=== PATIENT | female | born 2005 | race Two or more races ===

== ENCOUNTER 2024-12-14 12:01 | Observation (INO) | payer MEDICAID ==
--- NOTE | 2024-12-14 13:33 | DVH ---
EXAM: US OB ULTRASOUND COMP GTR 14 WKS HISTORY: POSS SROM TECHNIQUE: Multiple real-time grayscale images of the gravid uterus with duplex Doppler color flow an d M-mode spectral analysis. COMPARISON: None FINDINGS: IUP single live fetus at 32 weeks average ultrasound age (AUA) based on composite averages of the BPD , head circumference, abdominal circumference and femur length MEASUREMENTS: BPD: 8 cm GA: 32 w 1 d HC: 29.26 cm GA: 32 w 2 d AC: 28.9 cm GA: 32 w 6 d FL: 6 cm GA: 31 w 2 d Estimated weight 1949 grams; heart rate 150 beats per minute AQUILINO 18 cm ANATOMIC SURVEY: Posterior placenta without previa or abruption IMPRESSION: 1. IUP single live fetus at 32 weeks AUA corresponding to an REYNA of 02/07/2025. 2. No abnormality detected.
[2024-12-14 13:49] LABS: Vaginal Bacteria Moderate; Vaginal Epithelial Cells Moderate
[2024-12-14 13:51] LABS: Vaginal Clue Cells None Seen; Vaginal Trichomonas Not Present
--- NOTE | 2024-12-14 22:39 | DVHDS2 ---
Discharge Summary Date of Admission Dec 14, 2024 at 12:01 Date of Discharge: Dec 14, 2024 Admitting Diagnosis 31 wk rule out srom Labs/Diagnostic Data: Laboratory Results Test 12/14/24 12:54 Placental [id number] Negative Vaginal WBC (Wet Prep) Rare Vaginal RBC (Wet Prep) None seen Vaginal Epithelial Cells (Wet Prep) Moderate Vaginal Bacteria (Wet Prep) Moderate Vaginal Trichomonas (Wet Prep) Not present Vaginal Yeast (Wet Prep) None seen Vaginal Clue Cells (Wet Prep) None seen Brief Hx & Hospital Course: Nst reactive performed ; US reassuring Condition at Discharge: Good Final Diagnosis/Problems List 31 weeks rule out srom Discharge Disposition: Home Discharge Instruct/Medications Diet: Regular Activity: Light activity No Active Prescriptions or Reported Meds Discharge Statement: "Patient was advised to return to the ER or call 911 if any headaches, dizziness, shortness of breath, chest pain, abdominal pain, bleeding, fevers, or worsening of medical condition. Patient was counseled about treatment plan, medications, possible side effects, patientverbalized understanding. All questions were answered to the best of my ability. This discharge took greater then 30 minutes in planning, reviewing documentation, counseling the patient, and discussing with other team members." ASSESSMENT ASSESSMENT Hospital Course nst OB US Assessment 31 no sign of SROM Visit Coding OBGYN Date of Service: Dec 14, 2024 Billing Provider: PADMINI POWER DO CLOTHING CONSULTANT Common Visit Codes: [id number] INP/OBS CARE(HIGH) CLOTHING CONSULTANT Procedure Codes: 62304-33- NON-STRESS TEST PADMINI POWER DO Dec 14, 2024 22:38
== END 2024-12-14 14:15 | disposition home or self-care (01) ==
LOC: LDRP 12:01
PROVIDERS: ADMIT Obstetrics & Gynecology; ATTEND Obstetrics & Gynecology
DX: O42.913 Preterm premature rupture of membranes, unspecified as to length of time between rupture and onset of labor, third trimester (principal); Z3A.31 31 weeks gestation of pregnancy; Z79.899 Other long term (current) drug therapy
CPT/HCPCS: 59025; 76805; 81002; 84112; 87210; G0378

== ENCOUNTER 2024-12-21 06:09 | Observation (INO) | payer MEDICAID ==
[~2024-12-21] VITALS: Ht 162.6 cm; Wt 81.6 kg
[2024-12-21] MEDS ORDERED: PREN-96 PO (08:44)
--- NOTE | 2024-12-21 09:14 | DVH ---
BIOPHYSICAL PROFILE HISTORY: GDMA1 TECHNIQUE: Multiple transabdominal real-time grayscale sonographic images through the gravid uterus of the fetus with duplex Doppler color flow and M-mode spectral analysis FINDINGS: BIOPHYSICAL PROFILE: breathing score: 2 movement score: 2 tone score: 2 Quantitative AQUILINO score: 2 (AQUILINO: 16.5 Cm.) Total score: 8 The cervix not well visualized Single live fetus in cephalic presentation. heart rate 124 beats per minute. Posterior placenta without previa or abruption IMPRESSION: Biophysical profile score: 8
[2024-12-21] MEDS ORDERED: TERBUTALINE SULFATE 1 MG/ML 1ML VIAL SC SCH (09:30)
--- NOTE | 2024-12-22 14:24 | DVHDS2 ---
Physician Discharge Progress N Final Diagnosis: 32 wks ptl Operations or Procedures: Operations or Procedures nst reactive reviwed,prietoo Condition on Discharge: Good Disposition: Home Discharge Instructions: Diet: Consistent carbohydrate Activity: No Restrictions, As Tolerated Medications: na Follow Up Care: Specialist: 1w Discharge Statement: "Patient was advised to return to the ER or call 911 if any headaches, dizziness, shortness of breath, chest pain, abdominal pain, bleeding, fevers, or worsening of medical condition. Patient was counseled about treatment plan, medications, possible side effects, patientverbalized understanding. All questions were answered to the best of my ability. This discharge took greater then 30 minutes in planning, reviewing documentation, counseling the patient, and discussing with other team members." Visit Coding OBGYN Date of Service: Dec 21, 2024 Billing Provider: EIRBERTO GOFF DO SIGNAL INTEGRITY ENGINEER Common Visit Codes: [id number] OBS CARE (HIGH) SIGNAL INTEGRITY ENGINEER Procedure Codes: 60009-76- NON-STRESS TEST ERIBERTO GOFF DO Dec 22, 2024 14:24
== END 2024-12-21 10:47 | disposition home or self-care (01) ==
LOC: LDRP 08:15
PROVIDERS: ADMIT Obstetrics & Gynecology; ATTEND Obstetrics & Gynecology
DX: O60.03 Preterm labor without delivery, third trimester (principal); Z98.890 Other specified postprocedural states; Z79.899 Other long term (current) drug therapy; Z3A.32 32 weeks gestation of pregnancy
CPT/HCPCS: 59025; 76819; 81002; 82948; 82962; 94760; 96372; G0378; J3105

== ENCOUNTER 2024-12-28 06:34 | Observation (INO) | payer MEDICAID ==
[~2024-12-28 06:34] MED LIST: PREN-96 PO
[2024-12-31 16:37] LABS: Hematocrit 34.9 % (36.0-46.0); Hemoglobin 11.9 g/dL (12.2-16.2); Mean Corpuscular Hemoglobin 30.8 pg (28.0-32.0); Mean Corpuscular Volume 90.1 fL (80.0-100.0); Nucleated Red Blood Cells % 0.0 %
[2024-12-31 16:48] LABS: Protein, Urine 12.0 mg/dL (1-14)
[2024-12-31 16:51] LABS: Amphetamine Screen, Urine Neg (NEGATIVE); Barbiturate Scree,Urine Neg (NEGATIVE); Benzodiazephine Screen, Urine Neg (NEGATIVE); Cannabinoid Screen, Urine Neg (NEGATIVE); Cocaine Screen, Urine Neg (NEGATIVE); Opiate Scree,Urine Neg (NEGATIVE); Phencyclidine Screen, Urine Neg (NEGATIVE)
[2024-12-31 16:52] LABS: Urine Amorphous Crystal FEW /hpf (None Seen); Urine Protein, UAD Negative (Negative)
[2024-12-31 16:54] LABS: Alanine Aminotransferase 16 U/L (7-40); Albumin 3.9 g/dL (3.2-4.8); Anion Gap 10 (5-15); BUN/Creatinine Ratio 18.0 (10.0-20.0); Bilirubin, Total 0.3 mg/dL (0.2-1.0); Calcium 9.0 mg/dL (8.7-10.4); Carbon Dioxide 23 mmol/L (20-31); Chloride 104 mmol/L (98-107); Glucose 88 mg/dL (74-106); INR 0.95 (0.9-1.15); Partial Thromboplastin Time 25.5 SEC (24.5-34.5); Potassium 3.9 mmol/L (3.5-5.1); Prothrombin Time 10.1 sec (9.3-11.8); Sodium 137 mmol/L (136-145); Total Protein 6.1 g/dL (5.7-8.2); Uric Acid 4.2 mg/dL (3.1-7.8)
[2024-12-31 16:57] LABS: Alkaline Phosphatase 147 U/L (46-116); Blood Urea Nitrogen 9 mg/dL (9-23)
--- NOTE | 2024-12-31 17:16 | DVH ---
BIOPHYSICAL PROFILE HISTORY: PIH/Macro TECHNIQUE: Multiple real-time grayscale sonographic images through the gravid uterus of the fetus wi th duplex Doppler color flow. FINDINGS: BIOPHYSICAL PROFILE: breathing score: 2 movement score: 2 tone score: 2 Quantitative AQUILINO score: 2 Total score: 8 out of 8 Single live intrauterine . Cephalic lie. heart rate of 134 beats per minute. AQUILINO 17. 5 cm. Placenta is posteriorly positioned. IMPRESSION: Biophysical profile score: 8 out of 8
== END 2024-12-31 17:36 | disposition home or self-care (01) ==
LOC: LDRP 12-31 15:28
PROVIDERS: ADMIT Obstetrics & Gynecology; ATTEND Obstetrics & Gynecology
DX: Z36.89 Encounter for other specified antenatal screening (principal); R79.1 Abnormal coagulation profile; Z3A.33 33 weeks gestation of pregnancy; Z79.899 Other long term (current) drug therapy; Z98.890 Other specified postprocedural states
CPT/HCPCS: 36415; 59025; 76819; 80053; 80307; 81001; 81002; 82570; 84156; 84550; 85025; 85610; 85730; 94760; G0378

== ENCOUNTER 2025-01-06 07:40 | Observation (INO) | payer MEDICAID ==
--- NOTE | 2025-01-06 14:27 | DVHDS2 ---
Physician Discharge Progress N Final Diagnosis: gdm Operations or Procedures: Operations or Procedures nst reactive reviwed,sono Condition on Discharge: Good Disposition: Home Discharge Instructions: Diet: Consistent carbohydrate Activity: No Restrictions, As Tolerated Medications: na Follow Up Care: Specialist: 1d Discharge Statement: "Patient was advised to return to the ER or call 911 if any headaches, dizziness, shortness of breath, chest pain, abdominal pain, bleeding, fevers, or worsening of medical condition. Patient was counseled about treatment plan, medications, possible side effects, patientverbalized understanding. All questions were answered to the best of my ability. This discharge took greater then 30 minutes in planning, reviewing documentation, counseling the patient, and discussing with other team members." Visit Coding OBGYN Date of Service: Jan 06, 2025 Billing Provider: ERIBERTO GOFF DO EXHIBITION CARVER Common Visit Codes: [id number] OBS CARE (HIGH) EXHIBITION CARVER Procedure Codes: 12869-93- NON-STRESS TEST ERIBERTO GOFF DO Jan 06, 2025 14:27
[2025-01-06 15:11] LABS: Urine Protein, UAD TRACE (Negative)
[2025-01-06 15:17] LABS: Protein, Urine 14.1 mg/dL (1-14)
--- NOTE | 2025-01-06 15:27 | DVH ---
BIOPHYSICAL PROFILE HISTORY: Macro, R/O PIH TECHNIQUE: Multiple transabdominal real-time grayscale sonographic images through the gravid uterus of the fetus with duplex Doppler color flow and M-mode spectral analysis FINDINGS: BIOPHYSICAL PROFILE: breathing score: 2 movement score: 2 tone score: 2 Quantitative AQUILNIO score: 2 (AQUILINO: 13.48 Cm.) Total score: 8/8 Single live fetus in cephalic presentation. heart rate 147 beats per minute. Posterior Grade 2 placenta without previa or abruption Single live fetus at 34 weeks 5 days Biophysical profile score 8/8 corresponding to an REYNA of 02/12/2025 IMPRESSION: 1. Biophysical profile score: 8/8
[2025-01-06 16:32] LABS: 24 Hr. Total Protein, Urine 176.2 mg/24 Hr (<149.1); Urine Total Volume, 24 Hours 1250.0 mL
[2025-01-06] MEDS ORDERED: NIFE10CA52 PO (16:42)
[2025-01-06] MEDS ORDERED: BETAMETHASONE ACET (30mg/5ml) 5ml Vial 6mg/ml IM ONE (16:45)
[2025-01-06] MEDS ORDERED: NIFEdipine 10 MG CAP PO ONE (16:45)
[2025-01-06] MEDS: TERBUTALINE SULFATE 1 MG/ML 1ML VIAL SC SCH (17:20)
--- NOTE | 2025-01-06 17:36 | DVH ---
EXAM: US OB ULTRASOUND COMP GTR 14 WKS CLINICAL HISTORY: PTL - efw and cervical length COMPARISON: US BIOPHYSICAL PROFILE on DOS: 01/06/25, US BIOPHYSICAL PROFILE on DOS: 12/31/24, US BIOPHYS ICAL PROFILE on DOS: 12/21/24 TECHNIQUE: Grayscale, color-flow Doppler, and spectral Doppler ultrasound of the pelvis is performed by transabdominal technique. Findings: Single live intrauterine in vertex presentation with heart rate of 137 bpm. Cervical os appears closed and measures 2.7 cm in length. Placenta is posterior in location without evidence o f previa or abruption. Limited evaluation of anatomy. Estimated gestational age 34 weeks 5 days based on parameters which include biparietal diameter 8.6 cm, head circumference 29.8 cm, abdominal circumference 33.5 cm, and femur length 6.[address] ratios within normal limits. Estimated weight 2726 g (6 lb 0 oz ). Impression: 1. Single live intrauterine in vertex presentation with heart rate of 137 bpm. 2. Estimated gestational age 34 weeks 5 days with estimated date of confinement 02/12/2025.
== END 2025-01-06 18:07 | disposition home or self-care (01) ==
LOC: UNDOADMOB 13:13 → LDRP 13:13 → UNDODISOB 18:07
PROVIDERS: ADMIT Obstetrics & Gynecology; ATTEND Obstetrics & Gynecology
DX: O24.419 Gestational diabetes mellitus in pregnancy, unspecified control (principal); Z3A.34 34 weeks gestation of pregnancy; Z79.899 Other long term (current) drug therapy; Z98.890 Other specified postprocedural states
CPT/HCPCS: 59025; 76805; 76819; 81001; 81002; 82570; 82948; 82962; 84156; 94760; 96372; G0378; J3105

== ENCOUNTER 2025-01-09 10:10 | Observation (INO) | payer MEDICAID ==
[~2025-01-09 10:10] MED LIST changes: +NIFE10CA52 PO
--- NOTE | 2025-01-09 11:18 | DVH ---
BIOPHYSICAL PROFILE HISTORY: GDMA2 TECHNIQUE: Multiple transabdominal real-time grayscale sonographic images through the gravid uterus o f the fetus with duplex doppler color flow and M-mode spectral analysis FINDINGS: BIOPHYSICAL PROFILE: breathing score: 2 movement score: 2 tone score: 2 Quantitative AQUILINO score: 2 (AQUILINO: 17.7 cm.) Total score: 8/8 Single live fetus in cephalic presentation. heart rate 144 beats per minute. Posterior placenta without previa or abruption Biophysical profile score 8/8 corresponding to an REYNA of 02/12/25 IMPRESSION: Biophysical profile score: 8/8
[2025-01-09] MEDS ORDERED: METF-370 PO (11:45)
--- NOTE | 2025-01-10 07:38 | DVHDS2 ---
Physician Discharge Progress N Final Diagnosis: 37WKS DEC MOVEMENT RESOLVED Operations or Procedures: Operations or Procedures NST REACTIVE REVIWED,SONO Condition on Discharge: Good Disposition: Home Discharge Instructions: Diet: Consistent carbohydrate Activity: No Restrictions, As Tolerated Medications: NA Follow Up Care: Specialist: 1W Discharge Statement: "Patient was advised to return to the ER or call 911 if any headaches, dizziness, shortness of breath, chest pain, abdominal pain, bleeding, fevers, or worsening of medical condition. Patient was counseled about treatment plan, medications, possible side effects, patientverbalized understanding. All questions were answered to the best of my ability. This discharge took greater then 30 minutes in planning, reviewing documentation, counseling the patient, and discussing with other team members." Discharge Care Plan Instructions S/S of dehydration Visit Coding OBGYN Date of Service: Jan 09, 2025 Billing Provider: ERIBERTO GOFF DO MEDIA OPERATOR Common Visit Codes: [id number] INP/OBS CARE (HIGH) MEDIA OPERATOR Procedure Codes: 03138-14- NON-STRESS TEST ERIBERTO GOFF DO Jan 10, 2025 07:38
== END 2025-01-09 12:05 | disposition home or self-care (01) ==
LOC: LDRP 10:10
PROVIDERS: ADMIT Obstetrics & Gynecology; ATTEND Obstetrics & Gynecology
DX: O24.419 Gestational diabetes mellitus in pregnancy, unspecified control (principal); Z98.890 Other specified postprocedural states; Z79.899 Other long term (current) drug therapy; Z3A.37 37 weeks gestation of pregnancy
CPT/HCPCS: 59025; 76819; 81002; 82948; 82962; G0378

== ENCOUNTER 2025-01-13 12:14 | Inpatient (IN) | payer MEDICAID ==
[2025-01-13] VITALS (18 sets, daily range): BP systolic 112–137; BP diastolic 71–93; PULSE 70–85; RESP 15–21; TEMP 97.5–98.1; O2SAT 94–100
[~2025-01-13] VITALS: Ht 162.6 cm; Wt 90.7 kg
[~2025-01-13 12:14] MED LIST changes: +METF-370 PO
[2025-01-13] MEDS ORDERED: LORazepam 2MG/ML-1ML VIAL IV ONE (13:00)
[2025-01-13] MEDS ORDERED: hydrALAZINE HCL 20 MG/ML VL IV PRN ×2 (13:00)
[2025-01-13] MEDS ORDERED: DERMOPLAST 60ML BOTTLE TOP PRN (13:15)
[2025-01-13] MEDS ORDERED: BUTORPHANOL TARTRATE 2 MG/1 ML VIAL IV PRN ×2 (13:15)
[2025-01-13] MEDS ORDERED: PHISODERM TOP SOLN 240ML BTL TOP PRN (13:15)
[2025-01-13] MEDS ORDERED: LIDOCAINE 2%HCL (LOCAL ANESTH.) INJ 20ML MDV IJ PRN (13:15)
[2025-01-13] MEDS ORDERED: LACTATED RINGER'S 1,000 ML IV SCH ×2 (13:15→20:00)
[2025-01-13] MEDS ORDERED: WITCH HAZEL-GLYCERIN PAD TOP PRN (13:15)
[2025-01-13 13:26] LABS: Hematocrit 37.8 % (36.0-46.0); Hemoglobin 12.9 g/dL (12.2-16.2); Mean Corpuscular Hemoglobin 31.1 pg (28.0-32.0); Mean Corpuscular Volume 91.2 fL (80.0-100.0); Nucleated Red Blood Cells % 0.2 %
[2025-01-13] MEDS ORDERED: MORPHINE SULF PF 5 MG/10 ML VIAL ONE (13:41)
[2025-01-13] MEDS ORDERED: fentaNYL CITRATE 100 MCG/2 ML VL ONE (13:42)
[2025-01-13] MEDS ORDERED: MIDAZOLAM HCL 2MG/2ML 2ml VIAL (1mg/ml) ONE ×2 (13:42→14:34)
[2025-01-13] MEDS: TETRACAINE 1% INJ 2 ML VIAL IJ ONE (13:43)
[2025-01-13 13:48] LABS: Alanine Aminotransferase 18 U/L (7-40); Albumin 4.0 g/dL (3.2-4.8); Alkaline Phosphatase 166 U/L (46-116); Anion Gap 12 (5-15); BUN/Creatinine Ratio 17.2 (10.0-20.0); Bilirubin, Total 0.3 mg/dL (0.2-1.0); Blood Urea Nitrogen 10 mg/dL (9-23); Calcium 9.4 mg/dL (8.7-10.4); Carbon Dioxide 20 mmol/L (20-31); Chloride 106 mmol/L (98-107); Glucose 138 mg/dL (74-106); Potassium 4.0 mmol/L (3.5-5.1); Prothrombin Time 9.8 sec (9.3-11.8); Sodium 138 mmol/L (136-145); Total Protein 6.7 g/dL (5.7-8.2); Uric Acid 5.5 mg/dL (3.1-7.8)
[2025-01-13 13:49] LABS: INR 0.92 (0.9-1.15); Partial Thromboplastin Time 25.1 SEC (24.5-34.5)
--- NOTE | 2025-01-13 13:51 | DVHHP2 ---
OB CC & HPI Date Date of Admission: Jan 13, 2025 Patient Identification: : 2 Para: 1 EDC: Feb 12, 2025 EGA: 35WKS Chief Complaints: Reason for admission: active labor Indication for : desires repeat Admission Nurse Assessment Rev: No History of Present Complaints PT IS ADMOITTED IN LABOR WITH SEVERE UCS ,LEAKAGE AND HIGH BP 170/110 SHE HAS GDM A2 AND PREVIOUS CS REQUESTING RCS Past Medical History Cardiac: No pertinent Hx Pulmonary: No pertinent Hx Central Nervous System: No pertinent Hx GI: No pertinent Hx Hemotology/Oncology: No pertinent Hx Hepatobiliary: No pertinent Hx Psychiatric: No pertinent Hx Musculoskeletal: No pertinent Hx Rheumotologic: No pertinent Hx Infectious Disease: No peritnent Hx ENT: No pertinent Hx Renal/: No pertinent Hx Endocrine: No pertinent Hx Dermatology: No pertinent Hx Past Surgical History: OB History OB History Care: Good Care Ultrasounds: Normal mid trimester US Obstetrical Complications: Gestational Diabetes Medical Complications: None Allergies: Coded Allergies: NO KNOWN ALLERGIES (Unverified , 12/21/24) Home Meds Active Scripts Nifedipine (PROCARDIA CAPSULE) 10 Mg Cp, 10 MG PO Q4HR for 42 Days, #210 CAP take until [address] Acosta's order Prov:NEIL CRUZ CNM 01/06/25 Reported Medications Metformin Hydrochloride (Metformin Hcl) 500 Mg Tab, 500 MG PO DAILY for 30 Days, MG 01/09/25 Vit W/ Ferrous Fumara ( One Daily) Daily Tab, 1 TAB PO DAILY, #90 TAB 3 Refills 12/21/24 Current Medications Current Medications Medications (Trade) Dose Ordered Sig/Artis Route PRN Reason Start Time Stop Time Status Last Admin Magnesium Sulfate 1,000 ml @ 50 mls/hr Q20H IV 01/13/25 13:00 Hydralazine HCl (Apresoline Injection) 5 mg Q20MP PRN IV SBP>160 or DBP>105 01/13/25 13:00 Hydralazine HCl (Apresoline Injection) 10 mg Q20MP PRN IV SBP>160 or DBP>105 01/13/25 13:00 Lactated Ringer's 1,000 ml @ 125 mls/hr Q8H IV 01/13/25 13:15 Witch Stephanie (Tucks) 1 pad PRN PRN TOP PERINEAL AREA DISCOMFORT 01/13/25 13:15 UNV Sodium Lauryl Sulfate (Phisoderm) 240 ml PRN PRN TOP PERINEAL AREA DISCOMFORT 01/13/25 13:15 UNV Benzocaine (Dermoplast) 1 applic PRN PRN TOP PERINEAL AREA DISCOMFORT 01/13/25 13:15 UNV Butorphanol Tartrate (Stadol Injection) 1 mg Q4HPRN PRN IV MODERATE PAIN (4-6 PAIN SCALE) 01/13/25 13:15 UNV Butorphanol Tartrate (Stadol Injection) 2 mg Q4HPRN PRN IV SEVERE PAIN (7-10 PAIN SCALE) 01/13/25 13:15 UNV Lidocaine HCl (Xylocaine) 20 ml ONCE PRN IJ PERINEAL AREA DISCOMFORT 01/13/25 13:15 UNV Family & Social History Family/Social History Blood Type: Unknown Rubella: unknown RPR/VDRL: Negative GBS Status: Negative HBsAG: Negative Review of Systems Constitutional: No symptom reported Ears, Nose, & Throat: No symptom reported Eyes: No symptom reported Pulmonary/Respiratory: No symptom reported Cardiovascular: No symptom reported Gastrointestinal: No symptom reported Genitourinary: No symptom reported Musculoskeletal: No symptom reported Skin: No symptom reported Psychiatric: No symptom reported Endocrine: No symptom reported Hemotologic/Lymphatic: No symptom reported OB Admission Exam Physical Exam HEENT: TMs Normal, Fontanelles Normal, Nasal Mucosa Normal, Eyes non-injected, Oropharynx Normal, PERRLA, Moist Membranes, EOMI Heart: Rhythm Normal Lungs: Clear Abdomen: Non tender Extremities: Normal Reflexes: Normal Cervical Dilatation: 3cm Effacement: 50% Station: -3 Membranes: Ruptured Amniotic Fluid: Clear Heart Rate: 130's Accelerations: Accelerations Present Decelerations: No Decelerations Short Term Variability: Present Supervisor Decorating Variability: Average (6-25) Contractions on Admission: < 5 Minutes Apart Intensity: Moderate OB Plan Plan Admitting Diagnosis: IUP AT 35WKS IN LABOR DESIRES R C/S GDMA2,PTL,SEVER PIH Plan: Section Other Plan: INFORMED CONESNT OBTAINED ,RISKS AND COMPL OF CS D/W PT PREMATURITY,RISK OF RDS ,INFECTION,BLEEDING,PE,DVT D/W PT. ALL QUESTIONS ANSWERED PT FULLY UNDERSTANDS Visit Coding OBGYN Date of Service: Jan 13, 2025 Billing Provider: ERIBERTO ACOSTA DO QUALITY CONTROL CHECKER Common Visit Codes: [id number] INP/OBS CARE (HIGH) QUALITY CONTROL CHECKER Procedure Codes: 30967-07- NON-STRESS TEST ERIBERTO ACOSTA DO Jan 13, 2025 13:51
[2025-01-13 13:58] LABS: Urine Amorphous Crystal FEW /hpf (None Seen); Urine Protein, UAD TRACE (Negative)
[2025-01-13] MEDS ORDERED: HYDR-4072 PO (13:58)
[2025-01-13] MEDS ORDERED: IBUP-1456 PO (13:58)
[2025-01-13] MEDS ORDERED: DOCU-94 PO (13:58)
[2025-01-13] MEDS: ceFAZolin 2 GM/D5W50ml 50 ML IV ONE (13:59)
[2025-01-13] MEDS: LACT. RINGERS/OXYTOCIN 20UNITS 1,000 ML IV ONE (14:00)
[2025-01-13] MEDS ORDERED: ceFAZolin 1GM/50ML 50 ML IV SCH (14:00)
[2025-01-13] MEDS ORDERED: ONDANSETRON HCL 4 MG/2 ML VIAL IV PRN ×3 (14:00→20:00)
[2025-01-13] MEDS: BUPIVACAINE 0.75% INJ 10ML MPV SDV IJ ONE (14:02)
[2025-01-13 14:06] LABS: Amphetamine Screen, Urine Neg (NEGATIVE); Barbiturate Scree,Urine Neg (NEGATIVE); Opiate Scree,Urine Neg (NEGATIVE); Phencyclidine Screen, Urine Neg (NEGATIVE)
[2025-01-13 14:07] LABS: Benzodiazephine Screen, Urine Neg (NEGATIVE); Cannabinoid Screen, Urine Neg (NEGATIVE); Cocaine Screen, Urine Neg (NEGATIVE)
[2025-01-13] MEDS ORDERED: ONDANSETRON HCL 4 MG/2 ML VIAL ONE (14:40)
--- NOTE | 2025-01-13 15:12 | DVHOP2 ---
Operative Report DATE OF OPERATION:01/13/25 PREOPERATIVE DIAGNOSES: [IUP AT 35WKS WITH PIH,PTL,GDMA2,DESIRES RCS ,PREVIOUS CSX1] POSTOPERATIVE DIAGNOSES: [SAME] OPERATION PERFORMED: Repeat Section FINDINGS: [F] . Apgars of and . Weight [GOOD] crying tone. [CLEAR] amniotic fluid. Placenta and three-vessel were intact. Normal tubes, ovaries, and uterus. Moderate scar tissue. SURGEON: Suri Goff D.O. FINISHING MANAGER: mechanical system technician, [ROSEMARY]. ANESTHESIOLOGIST: Artis VEGA ANESTHESIA: [Duramorph spinal, regional]. COMPLICATIONS: [NONE]. ESTIMATED BLOOD LOSS: [800] mL. BLOOD PRODUCTS USED: [NONE]. PROCEDURE IN DETAIL: The patient was taken to the operating room, placed in sitting position, and spinal was placed without difficulty. She was then prepped and draped in a sterile fashion. A low Pfannenstiel incision was made scapel. At this point, it was carried down through the rectus fascia, nicked in the midline, and carried laterally. The rectus muscles were in the midline. Peritoneum was identified and entered with sharp dissection. Vesicouterine peritoneum was taken off the lower uterine segment. A lower uterine transverse incision was made with a scalpel down the chorionic membranes, ruptured with hemostat. Infant was in vertex position. One hand was placed in the lower uterine segment. Head was essentially delivered spontaneously. Nose and mouth were bulb suctioned. Shoulders and torso were delivered without difficulty. Again, pharynx, nose, and mouth were re-suctioned with vigorous crying tone. Cord was cut. The was handed off to the awaiting Respiratory. At this point, umbilical blood sample was taken. Placenta was removed. Uterus was exteriorized, cleared off all clots and debris, irrigated, and closed with a double layer of 0-Vicryl. The vesicouterine peritoneum was incorporated into this closure. We had complete hemostasis. EBL was [800] mL. The instrument, lap, and sponge count was correct x1. The uterus was placed back into the peritoneum. The peritoneal cavity was re-inspected and the lower uterine incision with good hemostasis. We closed the peritoneum with running continuous of 2-0 Vicryl. The Rectus Fascia was closed with 0-PDS, running continuous, looped-0. The skin was closed undermined, irrigated, and close with osmar. CONDITION: The patient's and the infant's condition is stable and but guarded. Visit Coding OBGYN Date of Service: Jan 13, 2025 Billing Provider: SURI GOFF DO CST Common Visit Codes: [id number] INP/OBS CARE (HIGH) CST Procedure Codes: [id number] DELIVERY ONLY SURI GOFF DO Jan 13, 2025 15:11
--- NOTE | 2025-01-13 15:13 | POSTOP ---
Post-Operative Note Post-Operative Note Preop Diagnosis IUP AT 35WKS IN LABOR,GDMA2,PIH,PREVIOUS CSX1 DESIRE SRCS Postop Diagnosis: SAME Operation performed RCS Specimen BABY GIRL,VX Anesthesia: Regional Anesthesiologist: NUGYRONI Blood Loss(fluid mgmt) 800ML Surgeon Eriberto Acosta Presentation Designer ROSEMARY Implant NA Complications & Mgmt NONE Date 01/13/25 Time 15:12 Visit Coding OBGYN Date of Service: Jan 13, 2025 Billing Provider: ERIBERTO ACOSTA DO ENVELOPE STUFFER Common Visit Codes: 73894-[id number] INP/OBS CARE (HIGH) ENVELOPE STUFFER Procedure Codes: [id number] DELIVERY ONLY ERIBERTO ACOSTA DO Jan 13, 2025 15:13
[2025-01-13] MEDS ORDERED: NALOXONE HCL 0.4 MG/ML VIAL IV PRN (15:30)
[2025-01-13] MEDS ORDERED: diphenhdrAMINE HCL 50 MG/1 ML VL IV PRN (15:30)
[2025-01-13] MEDS ORDERED: HYDROmorphone HCL 2 MG/ML VL/or syr IV PRN (15:30)
[2025-01-13] MEDS ORDERED: ACETAMINOPHEN IV 1000 MG/100ML (10MG/ML) IV PRN (20:00)
[2025-01-13] MEDS ORDERED: LORazepam 2MG/ML-1ML VIAL IV PRN (21:00)
[2025-01-13] MEDS: MAGNESIUM SULFATE 100 ML IV ONE ×2 (21:00→21:18)
[2025-01-13 21:14] LABS: Protein, Urine 41.9 mg/dL (1-14)
[2025-01-13] MEDS: LACTATED RINGER'S 1,000 ML IV SCH (21:29)
[2025-01-13] MEDS: MAGNESIUM SULFATE 40MG/ML 1,000 ML IV SCH (21:36)
[2025-01-13] MEDS: ceFAZolin 1GM/50ML 50 ML IV SCH (22:04)
[2025-01-13 22:34] LABS: Hematocrit 34.4 % (36.0-46.0); Hemoglobin 11.9 g/dL (12.2-16.2); Mean Corpuscular Hemoglobin 31.3 pg (28.0-32.0); Mean Corpuscular Volume 90.5 fL (80.0-100.0); Nucleated Red Blood Cells % 0.1 %
[2025-01-14] VITALS (24 sets, daily range): BP systolic 108–133; BP diastolic 67–86; PULSE 79–105; RESP 15–18; TEMP 97.9–98.2; O2SAT 94–99
--- NOTE | 2025-01-14 00:49 | DVHPN2 ---
Progress Note Date Seen: Jan 14, 2025 Subjective S: Pt denies BAINS/vision changes/RUQ pain, feels sleepy on magnesium sulfate vital signs Vital Sign Date Time Temp Pulse Resp B/P (MAP) Pulse Ox O2 Delivery O2 Flow Rate FiO2 01/14/25 00:00 85 18 98 01/13/25 23:35 Room Air 01/13/25 22:35 118/77 (91) 01/13/25 16:53 97.7 97.7 01/13/25 15:20 0 100 Total Intake and Output 01/13/25 01/13/25 01/14/25 15:00 23:00 07:00 Output Total 410 ml 150 ml Balance -410 ml -150 ml medications Current Medications Medications Dose Ordered Sig/Artis Route Start Time Stop Time Status Last Admin Dose Admin Magnesium Sulfate 1,000 ml @ 50 mls/hr Q20H IV 01/13/25 13:00 Hydralazine HCl 5 mg Q20MP PRN IV 01/13/25 13:00 Hydralazine HCl 10 mg Q20MP PRN IV 01/13/25 13:00 Kane Brown 1 pad PRN PRN TOP 01/13/25 13:15 UNV Sodium Lauryl Sulfate 240 ml PRN PRN TOP 01/13/25 13:15 UNV Benzocaine 1 applic PRN PRN TOP 01/13/25 13:15 UNV Butorphanol Tartrate 1 mg Q4HPRN PRN IV 01/13/25 13:15 UNV Butorphanol Tartrate 2 mg Q4HPRN PRN IV 01/13/25 13:15 UNV Lidocaine HCl 20 ml ONCE PRN IJ 01/13/25 13:15 UNV Cefazolin Sodium 50 ml @ 100 mls/hr Q8H IV 01/13/25 14:00 01/14/25 06:29 Cancel Diphenhydramine HCl 25 mg Q4HP PRN IV 01/13/25 15:30 Ondansetron HCl 4 mg Q4HP PRN IV 01/13/25 20:00 Cefazolin Sodium 50 ml @ 100 mls/hr Q8H IV 01/13/25 22:00 01/14/25 14:29 01/13/25 22:04 100 MLS/HR Acetaminophen 1,000 mg Q8HPRN PRN IV 01/13/25 20:00 01/14/25 19:59 Lactated Ringer's 1,000 ml @ 75 mls/hr [id number] IV 01/13/25 21:00 01/13/25 21:29 75 MLS/HR Magnesium Sulfate 1,000 ml @ 50 mls/hr Q20H IV 01/13/25 21:00 01/13/25 21:36 50 MLS/HR Lorazepam 4 mg ONCE PRN IV 01/13/25 21:00 laboratory and microbiology Laboratory Tests 01/13/25 22:00 01/13/25 13:10 Test 01/13/25 13:10 Range/Units Serum Glucose 138 H 74-106 mg/dL Objective O: VSS, normotensive (see CPN) Magnesium sulfate 2g/hr IV infusion running Chest: heart sounds normal and lung sounds clear bilaterally Abd: soft, non-tender, fundus at U/firm/midline, active bowel sounds, no rebound or guarding Incision: sylke dressing open to air, clean/dry/intact Ext: Non-tender, No edema, 2+ BLE DTRs Lochia: minimal See lab results Problems(with codes): (1) S/P repeat low transverse (2) Preeclampsia (3) Precipitous drop in hematocrit Assessment/Plan A: 19yo now POD#1 s/p repeat Preeclampsia P: Dr. Acosta is managing preeclampsia/magnesium sulfate/BPs. RN is to call her directly for orders. Continue with mag blood draws as scheduled. Continue with post-op PP care Plan discussed with: Patient Visit Coding OBGYN Date of Service: Jan 14, 2025 Billing Provider: NEIL CRUZ CNM GOSPEL WORKER Common Visit Codes: [id number] INP/OBS CARE(HIGH) NEIL CRUZ CNM Jan 14, 2025 00:49
[2025-01-14 07:01] LABS: Hematocrit 33.4 % (36.0-46.0); Hemoglobin 11.5 g/dL (12.2-16.2); Mean Corpuscular Hemoglobin 31.6 pg (28.0-32.0); Mean Corpuscular Volume 91.8 fL (80.0-100.0); Nucleated Red Blood Cells % 0.1 %
[2025-01-14] MEDS: MAGNESIUM SULFATE 40MG/ML 1,000 ML IV SCH (09:00)
[2025-01-14] MEDS ORDERED: IBUPROFEN 800 MG TAB PO PRN (13:45)
[2025-01-14] MEDS ORDERED: HYDROcodone-ACET 5/325MG TAB PO PRN (13:45)
[2025-01-14] MEDS: SIMETHICONE 80 MG CHEWABLE TABLET PO SCH (17:30)
[2025-01-14] MEDS: HYDROcodone-ACET 5/325MG TAB PO PRN (17:31)
[2025-01-14] MEDS: DOCUSATE SOD 100 MG CAP PO SCH (22:04)
[2025-01-15 02:35] VITALS: BP 122/84; PULSE 90; RESP 17; TEMP 98.1; O2SAT 98
--- NOTE | 2025-01-15 04:47 | DVHPN2 ---
Progress Note Date Seen: Jan 15, 2025 Subjective Patient feels tired, but she is eager to go see her baby -Lochia minimal -Regular diet well tolerated. -Ambulating and voiding well w/o feeling dizzy or lightheaded -Pain relieved with oral medication PRN -Passing flatus but no BM yet. -Desires and requests to be discharged home today (01/15) vital signs Vital Sign Date Time Temp Pulse Resp B/P (MAP) Pulse Ox O2 Delivery O2 Flow Rate FiO2 01/15/25 02:35 98.1 90 17 122/84 (97) 98 98.1 01/14/25 18:35 Room Air 01/13/25 15:20 0 100 Total Intake and Output 01/14/25 01/14/25 01/15/25 15:00 23:00 07:00 Output Total 550 ml 1450 ml Balance -550 ml -1450 ml medications Current Medications Medications Dose Ordered Sig/Artis Route Start Time Stop Time Status Last Admin Dose Admin Hydralazine HCl 5 mg Q20MP PRN IV 01/13/25 13:00 Hydralazine HCl 10 mg Q20MP PRN IV 01/13/25 13:00 Kane Brown 1 pad PRN PRN TOP 01/13/25 13:15 UNV Sodium Lauryl Sulfate 240 ml PRN PRN TOP 01/13/25 13:15 UNV Benzocaine 1 applic PRN PRN TOP 01/13/25 13:15 UNV Butorphanol Tartrate 1 mg Q4HPRN PRN IV 01/13/25 13:15 UNV Butorphanol Tartrate 2 mg Q4HPRN PRN IV 01/13/25 13:15 UNV Lidocaine HCl 20 ml ONCE PRN IJ 01/13/25 13:15 UNV Cefazolin Sodium 50 ml @ 100 mls/hr Q8H IV 01/13/25 14:00 01/14/25 06:29 Cancel Ondansetron HCl 4 mg Q4HP PRN IV 01/13/25 20:00 Lorazepam 4 mg ONCE PRN IV 01/13/25 21:00 Docusate Sodium 100 mg Q12HR PO 01/14/25 22:00 01/14/25 22:04 100 MG Dimethicone 80 mg QID PO 01/14/25 18:00 01/14/25 22:04 80 MG Ibuprofen 800 mg Q8HP PRN PO 01/14/25 13:45 Acetaminophen/ Hydrocodone Bitart 1 tab Q4HPRN PRN PO 01/14/25 13:45 Acetaminophen/ Hydrocodone Bitart 2 tab Q4HPRN PRN PO 01/14/25 13:45 01/14/25 17:31 2 TAB laboratory and microbiology Laboratory Tests 01/14/25 06:10 01/13/25 13:10 Test 01/13/25 13:10 Range/Units Serum Glucose 138 H 74-106 mg/dL Objective -A&O x4. No apparent distress. Affect appropriate -Afebrile, VSS -Chest: heart and lung sounds normal. -Breasts: Nipples intact w/o cracks or soreness -Abdomen: normal BS, soft, non-tender, no rebound or guarding, fundus firm @ U- 1, -Lower abdominal incision site with dressing dry and intact. Small amount of dried blood on dressing. No edema, erythema or induration -Extremities: no edema or tenderness Problems(with codes): (1) S/P repeat low transverse (2) Precipitous drop in hematocrit (3) Preeclampsia Assessment/Plan ASSESSMENT 19 yo now Post operative & ppd # 2 s/p Repeat Section, doing well. Blood Type: A+ Rubella Immune Pain controlled with PO medications PLAN -Continue pain management with oral medications as previously ordered -Increase fluid intake and fiber in diet to promote regular bowel movements, Laxative PRN -Educated patient on self-care and warning signs to watch for, including PPH, PPD, and pre-eclampsia -Continue routine care. Anticipate discharge today if BP cleared by Dr Acosta Plan discussed with: Patient, Mother Plan discussed with: Patient, Other (Mother) Visit Coding OBGYN Date of Service: Jan 15, 2025 Billing Provider: CRISTIAN ESPANA CNM REAL ESTATE SALESPERSON Common Visit Codes: [id number] INP/OBS CARE(HIGH) CRISTIAN ESPANA CNM Jan 15, 2025 04:47
--- NOTE | 2025-01-15 04:50 | DVHDS2 ---
Obstetrics Discharge Summary Obstetrics Discharge Summary Date of Admission: Jan 13, 2025 Date of Discharge: Jan 15, 2025 Reason For Admission: Onset of Labor, Section (Repeat) Intrapartum Procedures: (Low Cervical Transverse) Procedures: Hct/date: (33.4), Hgb/date: (11.5), Others (Magnesium sulfate) Discharge Diagnosis: Preeclampsia, Delivery Discharge Information: Activity (Unrestricted. Advance as tolerated. Balance activities with rest periods. No heavy lifting, pushing or straining. Pelvic rest x 6 weeks), Diet (Routine regular diet rich in fiber, protein, iron and vitamin C with adequate fluid intake.), Medications (Ibuprofen 600mg every 6 hours as needed for pain. [place] PRN. Colace 100mg twice a day as needed to keep bowel movements soft and prevent constipation. Continue Vitamin and iron), Discharge to (Home), Discarge date (01/15/25) Discharge Care Plan Instructions Textiles Sales Representative Anoop [id number] utilized - self care instructions given - emergency signs and symptoms including but not limited to pre-eclampsia precautions and signs of infection, PPH & of PPD reviewed with patient. -Follow up with OB Provider in 1 week for incision check. Subsequent visits will be decided at that time Visit Coding OBGYN Date of Service: Jan 15, 2025 Billing Provider: CRISTIAN ESPANA CNM [employer] Common Visit Codes: 32532-EKV/OBS DISCH DAY >30MIN CRISTIAN ESPANA CNM Jan 15, 2025 04:50
[2025-01-15 07:00] VITALS: BP 126/87; PULSE 90; RESP 14; TEMP 98.5; O2SAT 96
[2025-01-15] MEDS: LABETALOL HCL 200 MG TAB PO SCH (10:03)
[2025-01-15 11:00] VITALS: BP 110/75; PULSE 102; RESP 18; TEMP 97.8; O2SAT 96
[2025-01-15] MEDS ORDERED: LABE200T33 PO (12:55)
== END 2025-01-15 14:50 | disposition home or self-care (01) | DRG 540 ==
LOC: LDRP 12:14 → UNDOADMOB 12:14 → LDRP 13:10 → INTOOBSV 13:10 → OBSVTOIN 13:10 → LDRP 19:09
PROVIDERS: ADMIT Obstetrics & Gynecology; ATTEND Obstetrics & Gynecology
PROC: 10D00Z1 Extraction of Products of Conception, Low, Open Approach (ICD-10-PCS; principal; 2025-01-13 14:07)
DX: O24.429 Gestational diabetes mellitus in childbirth, unspecified control (principal); O14.94 Unspecified pre-eclampsia, complicating childbirth; O60.14X0 Preterm labor third trimester with preterm delivery third trimester, not applicable or unspecified; O34.211 Maternal care for low transverse scar from previous cesarean delivery; Z3A.35 35 weeks gestation of pregnancy; Z37.0 Single live birth
CPT/HCPCS: 36415; 59025; 80053; 80307; 81001; 81002; 82570; 83735; 84156; 84550; 85025; 85610; 85730; 86780; 86803; 86850; 86900; 86901; 94760; 94762; 96360; 96361; 96366; G0378; J2250; J2405; J2590; J3490

== ENCOUNTER 2025-01-17 13:29 | Emergency (ER) | payer MEDICAID ==
[~2025-01-17] VITALS: Ht 154.9 cm; Wt 89.7 kg
[~2025-01-17 13:29] MED LIST changes: +DOCU-94 PO; +HYDR-4072 PO; +IBUP-1456 PO; +LABE200T33 PO
[2025-01-17 13:30] VITALS: BP 152/91; PULSE 101; RESP 19; TEMP 98.2; O2SAT 98
--- NOTE | 2025-01-17 14:17 | ED.PDOC ---
History of Present Illness(SKN HPI Comments 19 y/o F, presents to the ED for CC of wound check s/p guicho. Patient reports, she had a on 01/13/25 and now has yellow purulent discharge from to right pelvic area. Patient comments, associated symptoms of constipation and bilateral feet swelling following procedure. Upon examination, cesarian site appears to be healing normally; no erythema or discharge are noted. Patient denies bleeding to cesarian site, fever, chills, sweats, nausea, or vomiting. No other symptoms or modifying factors are obtainable at this time. Chief Complaint: Wound Check Time Seen by MD: 14:15 History of Present Illness: Nurses Notes, Medications, Allergies Allergies: Coded Allergies: NO KNOWN ALLERGIES (Unverified , 12/21/24) Home Meds Active Scripts Ibuprofen (Ibuprofen) 800 Mg Tab, 800 MG PO TID PRN for 5 Days, #21 TAB Prov:FARRAHPERRIERIBERTO DO 01/13/25 Hydrocodone-Acetaminophen (Hydrocodone/Acetaminophen 10-325 mg) 1 Tab Tab, 1 TAB PO Q6HPRN PRN for 7 Days, #28 TAB Prov:ERIBERTO ACOSTA DO 01/13/25 Docusate Sodium (Colace) 100 Mg Cap, 1 CAP PO BID, #60 CAP 2 Refills Prov:ERIBERTO ACOSTA 01/13/25 Nifedipine (PROCARDIA CAPSULE) 10 Mg Cp, 10 MG PO Q4HR for 42 Days, #210 CAP take until [address] Acosta's order Prov:NEIL CRUZ CN 01/06/25 Reported Medications Labetalol Hcl (Labetalol Hcl) 200 Mg Tab, 1 TAB PO BID, #60 TAB 5 Refills 01/15/25 Metformin Hydrochloride (Metformin Hcl) 500 Mg Tab, 500 MG PO DAILY for 30 Days, MG 01/09/25 Vit W/ Ferrous Fumara ( One Daily) Daily Tab, 1 TAB PO DAILY, #90 TAB 3 Refills 12/21/24 Information Source: Patient Mode of Arrival: Ambulatory Severity: Moderate Timing: Days Duration: Since onset Prehospital treatment: None Location: Abdomen Mechanism: Spontaneous Onset Wound Type: Other () Immunization Status of Animal: NA Tetanus: Unknown History of: None Associated Signs and Symptoms: Pus Past Medical History PAST MEDICAL HISTORY: Denies 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 ENGINE ENGINEER Hx Family History Family History: Unknown Social History Smoker: Non-Smoker Alcohol: Denies ETOH Use Drugs: Denies Drug Use Lives In: Home Constitutional: denies: chills, diaphoresis, fatigue, fever, malaise, sweats, weakness, others EENTM: denies: blurred vision, double vision, ear bleeding, ear discharge, ear drainage, ear pain, ear ringing, eye pain, eye redness, hearing loss, mouth pain, mouth swelling, nasal discharge, nose bleeding, nose congestion, nose pain, photophobia, tearing, throat pain, throat swelling, voice changes, others Respiratory: denies: cough, hemoptysis, orthopnea, SOB at rest, shortness of breath, SOB with excertion, stridor, wheezing, others Cardiovascular: denies: chest pain, dizzy spells, diaphoresis, Dyspnea on exertion, edema, irregular heart beat, left arm pain, lightheadedness, palpitations, PND, syncope, others Gastrointestinal: denies: abdomen distended, abdominal pain, blood streaked bowels, constipated, diarrhea, dysphagia, difficulty swallowing, hematemesis, melena, nausea, poor appetite, poor fluid intake, rectal bleeding, rectal pain, vomiting, others Genitourinary: denies: abnormal vagina bleeding, burning, dyspareunia, dysuria, flank pain, frequency, hematuria, incontinence, pain, , vagina discharge, urgency, others Neurological: denies: dizziness, fainting, headache, left sided numbness, left sided weakness, numbness, paresthesia, pre-existing deficit, right sided numbness, right sided weakness, seizure, speech problems, tingling, tremors, w eakness, others Musculoskeletal: denies: back pain, gout, joint pain, joint swelling, muscle pain, muscle stiffness, neck pain, others Integumetry: reports: others ( wound with purlent drainage); denies: bruises, change in color, change in hair/nails, dryness, laceration, lesions, lumps, rash, wounds Allergic/Immunocompromised: denies: Difficulty Healing, Frequent Infections, Hives, Itching, others Hematologic/Lymphatic: denies: anemia, blood clots, easy bleeding, easy bruising, swollen glands, others Endocrine: denies: excessive hunger, excessive sweating, excessive thirst, excessive urination, flushing, intolerance to cold, intolerance to heat, unexplained weight gain, unexplained weight loss, others Psychiatric: denies: anxiety, bipolar disorder, depression, hopeless, panic disorder, schizophrenia, sleepless, suicidal, others All Other Systems: Reviewed and Negative Physical Exam General Appearance: Moderate Distress HEENT: Normal ENT Inspection, Pharynx Normal, TMs Normal Neck: Full Range of Motion, Non-Tender, Normal, Normal Inspection Respiratory: Chest Non-Tender, Lungs Clear, No Accessory Muscle Use, No Respiratory Distress, Normal Breath Sounds Cardiovascular: No Edema, No JVD, No Murmur, No Gallop, Normal Peripheral Pulses, Regular Rate/Rhythm Breast Exam: Deferred Gastrointestinal: No Organomegaly, Non Tender, No Pulsatile Mass, Normal Bowel Sounds, Soft Genitalia: Deferred Pelvic: Deferred Rectal: Deferred Extremities: No calf tenderness, Normal capillary refill, Normal inspection, Normal range of motion, Non-tender, No pedal edema Musculoskeletal : Apperance: Normal Neurologic: Alert, nursing secretary II-XII nml as Tested, No Motor Deficits, Normal Affect, Normal Mood, No Sensory Deficits Cerebellar Function: Normal Reflexes: Normal Skin: Wounds (Surgical ) Peripheral Pulses: 3+ Radial (R), 3+ Radial (L) Lymphatic: No Adenopathy Was a procedure done? Was a procedure done?: No Differential Diagnosis (INTG) Differential Diagnosis: Cellulitis X-Ray, Labs, Meds, VS Vital Signs Date Time Temp Pulse Resp B/P (MAP) Pulse Ox O2 Delivery O2 Flow Rate FiO2 01/17/25 13:30 98.2 101 19 152/91 98 98.2 Patient alert. Had a . Vitals stable. Answering questions. On examination of the site does not show any infection. Healing well. No fluid pocket felt to. No fluid drainage. Explained to the patient about wound healing. Was told to follow up with her primary care physician. Was told to come back if there is any problem. Time of 1ST Reevaluation: 14:45 Reevaluation 1ST: Improved Patient Education/Counseling: Diagnosis, Treatment Family Education/Counseling: No Family Present SEPSIS Sepsis Screen Date sepsis recognized/suspect: Jan 17, 2025 Time Sepsis recognized/suspect: 1330 Recent Procedure: No On Antibiotic Therapy: No Respiratory Rate >20: No Heart Rate >90: Yes Temp<36 C (96.8 F) or >38.3 C: No SBP <90 or MAP <65 mmHG: No New Acute Mental Status Change: No Is the patient on CPAP, BIPAP,: No Vital Signs Date Time Temp Pulse Resp B/P (MAP) Pulse Ox O2 Delivery O2 Flow Rate FiO2 01/17/25 13:30 98.2 101 19 152/91 98 98.2 Departure 1 Departure Time of Disposition: 16:03 Impression: Primary Impression: Wound dehiscence Additional Impression: Visit for wound check Disposition: HOME / SELF CARE / HOMELESS Condition: Good Discharged With: Self Critical Care Note Critical Care Time?: No Stability Stability form required: No Heart Score Heart Score: Heart Score Response (Comments) Value History N/A 0 EKG N/A 0 Age N/A 0 Risk Factors N/A 0 Troponin N/A 0 Total 0 I personally scribed for MCKENZIE RAM MD ([email or web address]) on 01/17/25 at 14:17. Electronically submitted by Karol Raman ([email or web address]). I personally scribed for MCKENZIE RAM MD ([email or web address]) on 01/17/25 at 14:51. Electronically submitted by Karol Raman ([email or web address]). MCKENZIE RAM MD Jan 17, 2025 14:17
== END 2025-01-17 16:43 | disposition home or self-care (01) ==
LOC: ER 13:29
DX: T81.30XA Disruption of wound, unspecified, initial encounter (principal); K59.00 Constipation, unspecified; Z79.84 Long term (current) use of oral hypoglycemic drugs; Z79.899 Other long term (current) drug therapy; Z48.00 Encounter for change or removal of nonsurgical wound dressing